=== PATIENT | female | born 1965 | race African-American/Black ===

== ENCOUNTER 2017-07-26 15:57 | Observation (INO) | payer BC ==
[2017-07-26 16:04] VITALS: BMI 34.0
--- NOTE | 2017-07-26 16:27 | PDOC ---
History of Present Illness - General Chief Complaint: Lightheaded Stated Complaint: DIZZINESS Time Seen by Provider: 07/26/17 16:14 History Source: Patient - History of Present Illness Initial Comments: 07/26/17 18:00 Patient is a 52 y.o. female with a PMH of HTN who presents today c/o an isolated episode of lightheadedness. Patient states she was in the shower today when she suddenly felt lightheaded as if she was going to faint so she got out of the shower and sat on the toilet. Patient then vomited. Patient states she thought she vomited 1-2 tablespoons, however, when she looked down at the towel she had vomited 1-2 cups. Patient states there was no blood in the vomit and the vomit looked like a recent hamburger which she just consumed. Patient denies any diaphoresis, chest pain or shortness of breath but does note an intermittent pain in her R abdomen (upper and lower quadrants) that resolved shortly post emesis. Attending (Dr. Ramirez) HPI noted that patient was with her mother later in the day when her mother noticed patient looked unwell and insisted patient come to ED for evaluation. PSH: none NKDA Social: (-) nicotine, (+) alcohol 3-4 drinks monthly, (-) marijuana/cocaine/ heroin PMD: Dr. Sweet Past History - Past Medical History Allergies/Adverse Reactions: Allergies Allergy/AdvReac Type Severity Reaction Status Date / Time No Known Allergies Allergy Verified 07/26/17 16:04 Home Medications: Ambulatory Orders Amlodipine Besylate [Norvasc -] 5 mg PO DAILY 07/26/17 Hydrochlorothiazide [Hctz -] 25 mg PO DAILY 07/26/17 HTN: Yes - Suicide/Smoking/Psychosocial Hx Smoking History: Never smoked Hx Alcohol Use: No Drug/Substance Use Hx: No Substance Use Type: None Review of Systems - Review of Systems Constitutional: No: Chills, Diaphoresis, Fever HEENTM: No: Blurred Vision, Double Vision Respiratory: No: Cough, Shortness of Breath Cardiac (ROS): Yes: Lightheadedness. No: Chest Pain, Palpitations ABD/GI: No: Constipated, Diarrhea : No: Burning, Dysuria Neurological: No: Headache, Numbness, Seizure, Weakness Psychiatric: No: Anxiety, Depression Hematologic/Lymphatic: No: Blood Clots All Other Systems: Reviewed and Negative *Physical Exam - Vital Signs Last Vital Signs Temp Pulse Resp BP Pulse Ox 98.5 F 103 H 18 138/95 100 07/26/17 16:01 07/26/17 16:01 07/26/17 16:01 07/26/17 16:01 07/26/17 16:01 - Physical Exam General Appearance: Yes: Nourished, Appropriately Dressed HEENT: positive: EOMI, NAIDA Neck: positive: Trachea midline, Supple Respiratory/Chest: positive: Lungs Clear, Normal Breath Sounds Cardiovascular: positive: Regular Rhythm, Regular Rate, S1, S2 Gastrointestinal/Abdominal: positive: Normal Bowel Sounds, Soft Extremity: positive: Normal Capillary Refill, Normal Inspection Integumentary: positive: Normal Color, Dry, Warm Neurologic: positive: state wildlife officer II-XII NML intact, Fully Oriented, Alert ED Treatment Course - LABORATORY CBC & Chemistry Diagram: 07/27/17 05:35 07/27/17 05:35 Medical Decision Making - Medical Decision Making 07/26/17 17:56 Patient is a 52 y.o. female with a PMH of HTN who present c/o of vomiting, possible syncope and developed chest pain (pressure) while in ED. Initial DDx included ACS vs. Dehydration vs. Muskoskeletal pain. EKG showed HR 92 with T wave inversions in Lead III, aVF. Office of patient's PCP, Dr. Sweet, contacted, and prior EKG showed T wave inversion in Lead III, however not aVF. Patient's Troponin (+) 0.08. Patient administered oral K+ supplemention for Hypokalemia (3.2) and admitted to inpatient telemetry under Dr. Marsh. 07/27/17 14:58 *DC/Admit/Observation/Transfer Diagnosis at time of Disposition: Myocardial infarction - Discharge Dispostion Condition at time of disposition: Fair Admit: Yes
[2017-07-26 16:53] LABS: BASOPHIL 0.4 % (0-2.0); EOSINOPHIL 0.4 % (0-4.5); MCH 22.3 pg (25.7-33.7); MCHC 33.3 g/dl (32.0-36.0); MEAN CELL VOLUME 66.9 fl (80-96); NEUTROPHILS 78.5 % (42.8-82.8); PLATELET COUNT 274 K/MM3 (134-434); RDW 15.7 % (11.6-15.6); WHITE BLOOD COUNT 10.6 K/mm3 (4.0-10.0)
--- NOTE | 2017-07-26 17:53 | PDOC ---
Attending Attestation - Resident Resident Name: Qi Brooks - ED Attending Attestation I have performed the following: I have examined & evaluated the patient, The case was reviewed & discussed with the resident, I agree w/resident's findings & plan, Exceptions are as noted - HPI HPI: 07/26/17 16:28 52yo F hx HTN p/w lightheadness since this morning while in the shower. She felt like she would pass out so she went to sit on the toilet where she then had 1 episode of NBNB emesis. Pt is not sure if she had LOC but she did not fall off the toilet. Pt reports resolution of lightheadness a few mins later and so she tried to go to the post office with her mother who reports that she appeared weak and did not look well. At that point, the patient told her mother about her lightheadedness which prompted her to come to the ED. Here in the ED, the patient began to report intermittent sternal non radiating chest pressure for a few mins at a time. She can no identify any relieving or exacerbating factors. Pt was otherwise in her USOGH, denies fevers, chills, SOB, LE edema, dysuria, rashes. PMD: Dr Sweet - Physicial Exam PE: 07/26/17 17:54 GENERAL: Awake, alert, and fully oriented, in no acute distress HEAD: No signs of trauma EYES: PERRLA, EOMI, sclera anicteric, conjunctiva clear ENT: Auricles normal inspection, hearing grossly normal, nares patent, oropharynx clear without exudates. Moist mucosa NECK: Normal ROM, supple, no lymphadenopathy, JVD, or masses LUNGS: Breath sounds equal, clear to auscultation bilaterally. No wheezes, and no crackles HEART: Regular rate and rhythm, normal S1 and S2, no murmurs, rubs or gallops ABDOMEN: Soft, nontender, normoactive bowel sounds. No guarding, no rebound. No masses EXTREMITIES: Normal range of motion, no edema. No clubbing or cyanosis. No cords, erythema, or tenderness NEUROLOGICAL: Normal speech, cranial nerves intact, negative pronator drift, 5/ 5 strength in all 4 extremities, normal sensation to light touch in all 4 extremities, normal cerebellar exam, normal gait, normal reflexes and tone SKIN: Warm, Dry, normal turgor, no rashes or lesions noted. EKG, NSR, normal axis, diffuse TWI in II, III, Avf and V2-V4. No RICHI - Medical Decision Making 07/26/17 18:09 52-year-old female with a history of hypertension who presents with an episode of presyncope, vomiting and intermittent chest pain while here in the emergency department. Vitals are unremarkable. Exam is normal. EKG is concerning for new flipped T waves in multiple leads compared to previous EKG dictated over the phone by her primary care doctor to Dr. Brooks. Differential includes but is not limited to unstable angina versus ACS versus PE. -labs -cxr -asa -youth nutritional monitor 07/26/17 18:45 -dimer negative, trop positive to 0.08 concerning for ACS vs NSTEMI. Pt on youth nutritional monitor. Pt admitted to Dr. Ricks for further evaluation (covering for Dr. Sweet). Cardiology has been consulted.
[2017-07-26 17:55] LABS: PLATELET COMMENT2 NO CLOTTING DETECTED; PLATELET ESTIMATE ADEQUATE (NORMAL)
[2017-07-26 17:56] LABS: ANISOCYTOSIS 1+; MICROCYTOSIS 1+; POLYCHROMASIA 1+
[2017-07-26 18:02] LABS: ANION GAP 8 (8-16); BILIRUBIN,TOTAL 0.2 mg/dL (0.2-1.0); CALCIUM 9.9 mg/dL (8.5-10.1); CO2 31 mmol/L (21-32); CREATININE 1.1 mg/dL (0.55-1.02); GLUCOSE,RANDOM 111 mg/dL (74-106); SGOT/AST 13 U/L (15-37); SGPT/ALT 26 U/L (12-78); TOT PROT 8.3 g/dl (6.4-8.2)
[2017-07-26 18:04] LABS: ALK PHOS 108 U/L (45-117); CPK 117 IU/L (26-192); TROPONIN I 0.08 ng/ml (0.00-0.05)
[2017-07-26] MEDS ORDERED: ASPIRIN 325 MG TABLET PO ONE (18:14)
[2017-07-26] MEDS ORDERED: ASPIRIN 325 MG TABLET ONE (18:38)
[2017-07-26] MEDS ORDERED: ACETAMINOPHEN 325 MG TABLET (FP) PO ONE (18:55)
[2017-07-26] MEDS ORDERED: POTASSIUM CHLORIDE TABS 20 MEQ TABLET.ER (FP) PO ONE ×2 (18:56→19:22)
[2017-07-26] MEDS ORDERED: ACETAMINOPHEN 325 MG TABLET (FP) ONE (19:22)
--- NOTE | 2017-07-26 21:21 | HP ---
Admitting History and Physical - Primary Care Physician PCP: Alethea Ricks S - Admission Chief Complaint: dizziness, CP History of Present Illness: Patient is a 52 y.o. female with a PMH of HTN who presents today c/o an isolated episode of lightheadedness. Patient states she was in the shower today when she suddenly felt lightheaded as if she was going to faint so she got out of the shower and sat on the toilet. Patient then vomited. Patient states there was no blood in the vomit and no abdominal pain. Patient denies any diaphoresis or shortness of breath but does note an intermittent pain in her chest but she attributed it to having "heavy breasts pressing on her chest". Pt seen in ER. Her mother at bedside. Pt saw PCP dr Lacey Sweet last week and was started on HCT for HTN and meclizine for prn vertigo. History Source: Patient, Family Member, Medical Record - Past Medical History Cardiovascular: Yes: HTN - Smoking History Smoking history: Never smoked - Alcohol/Substance Use Hx Alcohol Use: No History of Substance Use: reports: None - Social History Usual Living Arrangement: Yes: With Parent ADL: Independent History of Recent Travel: No Home Medications - Allergies Allergies/Adverse Reactions: Allergies Allergy/AdvReac Type Severity Reaction Status Date / Time No Known Allergies Allergy Verified 07/26/17 16:04 - Home Medications Home Medications: Ambulatory Orders Amlodipine Besylate [Norvasc -] 5 mg PO DAILY 07/26/17 Hydrochlorothiazide [Hctz -] 25 mg PO DAILY 07/26/17 Aspirin [ASA -] 81 mg PO DAILY tab.chew 07/27/17 Potassium Chloride [K-Dur -] 20 meq PO DAILY #30 tab 07/27/17 Family Disease History - Family Disease History Family History: Unremarkable Review of Systems - Review of Systems Constitutional: denies: Chills, Fever Eyes: denies: Blurred Vision, Double Vision HENT: denies: Difficult Swallowing, Epistaxis Neck: denies: Stiffness, Tenderness Cardiovascular: reports: Chest Pain. denies: Palpitations, Shortness of Breath Respiratory: denies: Cough, SOB Gastrointestinal: denies: Abdominal Pain, Bloating, Constipation, Diarrhea Genitourinary: denies: Dysuria, Flank Pain Musculoskeletal: denies: Back Pain, Joint Pain Neurological: denies: Change in LOC, Change in Speech, Confusion, Seizure Hematology/Lymphatic: denies: Easily Bruised, Excessive Bleeding Psychiatric: denies: Altered Sleep Pattern, Anxiety, Depression Physical Examination Vital Signs: Vital Signs Temperature 98.4 F 07/26/17 20:50 Pulse Rate 100 H 07/26/17 20:50 Respiratory Rate 07/26/17 20:50 Blood Pressure 140/92 07/26/17 20:50 O2 Sat by Pulse Oximetry (%) 98 07/26/17 20:24 Constitutional: Yes: No Distress, Calm Eyes: Yes: Conjunctiva Clear HENT: Yes: Atraumatic Neck: Yes: Supple Cardiovascular: Yes: Regular Rate and Rhythm Respiratory: Yes: CTA Bilaterally Gastrointestinal: Yes: Soft. No: Distention, Tenderness Renal/: No: CVA Tenderness - Left, CVA Tenderness - Right Musculoskeletal: No: Joint Stiffness, Joint Swelling Extremities: No: Cold, Cool, Cyanosis Edema: No Integumentary: No: Rash, Venous Stasis Changes Neurological: Yes: WNL, Alert, Oriented ...Motor Strength: WNL Psychiatric: Yes: WNL, Alert, Oriented. No: Agitated, Suicidal Ideation Imaging - Results Chest X-ray: Report Reviewed Other: Report Reviewed Assessment/Plan HTN, overweight; CP sd, low K, presyncope EKG some T changes noted; troponins borderline + admit to telemetry cardiac eval echo; further w/u per cardio replete K, f/u labs d/w pt and her mother d/w pt's PCP
[2017-07-26] MEDS: HEPARIN NA (PORCINE) 5,000 UNITS/ML 1ML VIAL SQ SCH (22:26)
[2017-07-27 07:27] LABS: BASOPHIL 0.5 % (0-2.0); EOSINOPHIL 0.7 % (0-4.5); MCH 21.6 pg (25.7-33.7); MEAN CELL VOLUME 67.6 fl (80-96); MEAN PLT VOLUME 8.8 fl (7.5-11.1); NEUTROPHILS 53.2 % (42.8-82.8); PLATELET COUNT 247 K/MM3 (134-434); RDW 15.5 % (11.6-15.6); WHITE BLOOD COUNT 6.3 K/mm3 (4.0-10.0)
[2017-07-27 08:17] LABS: ANION GAP 10 (8-16); CALCIUM 9.3 mg/dL (8.5-10.1); CO2 30 mmol/L (21-32); GLUCOSE,RANDOM 88 mg/dL (74-106)
[2017-07-27 08:23] LABS: CPK 102 IU/L (26-192); CREATININE 0.9 mg/dL (0.55-1.02); TROPONIN I 0.07 ng/ml (0.00-0.05)
[2017-07-27] MEDS: HEPARIN NA (PORCINE) 5,000 UNITS/ML 1ML VIAL SQ SCH (09:21)
--- NOTE | 2017-07-27 09:26 | PN ---
Progress Note, Physician Chief Complaint: see DC summary from today - Current Medication List Current Medications: Active Medications Amlodipine Besylate (Norvasc -) 5 mg PO DAILY [facility] Last Admin: 07/27/17 09:20 Dose: 5 mg Aspirin (Asa -) 81 mg PO DAILY [facility] Last Admin: 07/27/17 09:20 Dose: 81 mg Heparin Sodium (Porcine) (Heparin -) 5,000 unit SQ BID [facility] Last Admin: 07/27/17 09:21 Dose: 5,000 unit Hydrochlorothiazide (Hctz -) 25 mg PO DAILY [facility] Last Admin: 07/27/17 09:20 Dose: 25 mg Potassium Chloride (K-Dur -) 40 meq PO ONCE ONE Stop: 07/27/17 09:26 Potassium Chloride (K-Dur -) 20 meq PO DAILY [facility] - Objective Vital Signs: Vital Signs Temperature 98.1 F 07/27/17 08:37 Pulse Rate 69 07/27/17 08:37 Respiratory Rate 20 07/27/17 08:37 Blood Pressure 138/69 07/27/17 08:37 O2 Sat by Pulse Oximetry (%) 99 07/26/17 20:50 Labs: CBC, BMP 07/27/17 05:35 07/27/17 05:35 Assessment/Plan see DC from today
[2017-07-27] MEDS ORDERED: amLODIPine BESYLATE 5 MG TABLET (FP) PO SCH (10:00)
[2017-07-27] MEDS ORDERED: ASPIRIN 81 MG CHEWABLE TABLETS PO SCH (10:00)
[2017-07-27] MEDS ORDERED: POTASSIUM CHLORIDE TABS 20 MEQ TABLET.ER (FP) PO ONE (10:00)
[2017-07-27] MEDS ORDERED: HYDROCHLOROTHIAZIDE 25 MG TABLET (FP) PO SCH (10:00)
--- NOTE | 2017-07-27 10:56 | CON.CARD ---
Cardiology Consult (text) - Consultation Consultation Note: cc: dizziness hpi: 52 f hx htn here with dizziness. Pt had been feeling well until yesterday. She was taking a shower and felt lightheaded so she got out and sat on toilet and then felt nausea and vomited. Does not recall and LOC. After vomiting felt better but later on decided to come to ER for eval. No cp, sob, palps, pnd, orthopnea, le edema. No hx of such episodes. Feeling well this AM. pmh: per hpi psh: nc social: no tob fam: no premature cad, scd ros: per hpi; no fever, diarrhea, cough, nasal congestion, iverson, vision changes, hematuria, gib, dysuria meds: Ambulatory Orders Amlodipine Besylate [Norvasc -] 5 mg PO DAILY 07/26/17 Hydrochlorothiazide [Hctz -] 25 mg PO DAILY 07/26/17 pe: Vital Signs Period Temp Pulse Resp BP Sys/Bowles Pulse Ox Last 24 Hr 98.1 F-98.8 F 69-103 18-20 133-143/69-95 98-100 nad no jvd rrr s1s2 no mrg cta bl nl eff aaox3 no le e/c/c abd nt nd pos bs no jaundice diaphoresis pos dp pt no carotid bruits Laboratory Last Values WBC 6.3 K/mm3 (4.0-10.0) D 07/27/17 05:35 RBC 5.24 M/mm3 (3.60-5.2) H 07/27/17 05:35 Hgb 11.3 GM/dL (10.7-15.3) 07/27/17 05:35 Hct 35.5 % (32.4-45.2) 07/27/17 05:35 MCV 67.6 fl (80-96) L 07/27/17 05:35 MCH 21.6 pg (25.7-33.7) L 07/27/17 05:35 MCHC 32.0 g/dl (32.0-36.0) 07/27/17 05:35 RDW 15.5 % (11.6-15.6) 07/27/17 05:35 Plt Count 247 K/MM3 (134-434) 07/27/17 05:35 MPV 8.8 fl (7.5-11.1) 07/27/17 05:35 Neutrophils % 53.2 % (42.8-82.8) D 07/27/17 05:35 Lymphocytes % 39.6 % (8-40) D 07/27/17 05:35 Monocytes % 6.0 % (3.8-10.2) 07/27/17 05:35 Eosinophils % 0.7 % (0-4.5) 07/27/17 05:35 Basophils % 0.5 % (0-2.0) 07/27/17 05:35 Platelet Estimate Adequate (NORMAL) 07/26/17 16:40 Platelet Comment No clumping noted 07/26/17 16:40 Platelet Comment No clotting detected 07/26/17 16:40 Polychromasia 1+ 07/26/17 16:40 Anisocytosis 1+ 07/26/17 16:40 Microcytosis 1+ 07/26/17 16:40 D-Dimer < 200 ng/ml (<200-235) 07/26/17 18:30 Sodium 139 mmol/L (136-145) 07/27/17 05:35 Potassium 3.3 mmol/L (3.5-5.1) L 07/27/17 05:35 Chloride 99 mmol/L (98-107) 07/27/17 05:35 Carbon Dioxide 30 mmol/L (21-32) 07/27/17 05:35 Anion Gap 10 (8-16) 07/27/17 05:35 BUN 18 mg/dL (7-18) 07/27/17 05:35 Creatinine 0.9 mg/dL (0.55-1.02) 07/27/17 05:35 Creat Clearance w eGFR 52.58 (>60) 07/26/17 17:30 Random Glucose 88 mg/dL (74-106) D 07/27/17 05:35 Calcium 9.3 mg/dL (8.5-10.1) 07/27/17 05:35 Magnesium 2.2 mg/dL (1.8-2.4) 07/26/17 17:30 Total Bilirubin 0.2 mg/dL (0.2-1.0) 07/26/17 17:30 AST 13 U/L (15-37) L 07/26/17 17:30 ALT 26 U/L (12-78) 07/26/17 17:30 Alkaline Phosphatase 108 U/L (45-117) 07/26/17 17:30 Creatine Kinase 102 IU/L (26-192) 07/27/17 05:35 Troponin I 0.07 ng/ml (0.00-0.05) H 07/27/17 05:35 Total Protein 8.3 g/dl (6.4-8.2) H 07/26/17 17:30 Albumin 4.0 g/dl (3.4-5.0) 07/26/17 17:30 ecg 07/26/17: sr, nl intervals, lvh, nonspec tw changes, no st changes cxr: clear lungs tele: sr a/p: 52 f hx htn here with dizziness. presyncope: -seems vasovagal based on description, feeling better now -no signs acs, chf, arrhythmia -tele benign -can check echo today -if echo benign then pt can f/u as outpt to consider possible event monitor htn: -cont home meds
[2017-07-27 12:51] LABS: FERRITIN 23.052 ng/ml (6.9-282.5)
[2017-07-27 15:09] VITALS: BP 125/77; PULSE 82; TEMP 97.3
--- NOTE | 2017-07-27 17:45 | PN ---
Progress Note (short form) - Note Progress Note: Echo report reviewed --> no significant abnormalities. Discussed with Dr. Mayfield and pmd. --> patient stable for d/c from CV perspective. Will need outpatient cardiology follow up.
--- NOTE | 2017-07-27 18:21 | DS ---
Physical Examination Vital Signs: Vital Signs Temperature 97.3 F L 07/27/17 15:08 Pulse Rate 82 07/27/17 15:08 Respiratory Rate 20 07/27/17 15:08 Blood Pressure 125/77 07/27/17 15:08 O2 Sat by Pulse Oximetry (%) 98 07/27/17 08:00 Findings/Remarks: in bed no new c/o no CP/dizziness Constitutional: Yes: No Distress, Calm Eyes: Yes: Conjunctiva Clear HENT: Yes: Atraumatic Neck: Yes: Supple Cardiovascular: Yes: Regular Rate and Rhythm Respiratory: Yes: CTA Bilaterally Gastrointestinal: Yes: Soft. No: Distention, Hyperactive Bowel Sounds, Tenderness Musculoskeletal: No: Joint Stiffness, Joint Swelling Extremities: No: Cold, Cool, Cyanosis Edema: No Integumentary: No: Rash, Venous Stasis Changes Neurological: Yes: WNL, Alert, Oriented ...Motor Strength: WNL Psychiatric: Yes: WNL, Alert, Oriented. No: Agitated, Suicidal Ideation Labs: CBC, BMP 07/27/17 05:35 07/27/17 05:35 Discharge Summary Reason For Visit: MYOCARDIAL INFARCTION Current Active Problems Myocardial infarction (Acute) Procedures: Principal: admitted with CP/ presyncope, borderline troponins and some EKG changes Other Procedures: echo WNL d/w cardio dr Mayfield and dr Brady who cleared pt to go home and advised close f/u in office; K po ordered from her pharmacy; Hospital Course: pt to DC home today and f/u with PCP and cardio within 1 week for labs and further w/u; d/w pt and d/w PCP, d/w staff Condition: Fair - Instructions Diet, Activity, Other Instructions: * f/u PCP and cardiology and labs CBC CMP in 1 week * Return to ER if worse or recurrent symptoms occur * Take meds as advised Referrals: Umang Mayfield MD [Staff Physician] - Carmen Sweet MD [Primary Care Provider] - Disposition: HOME - Home Medications Comprehensive Discharge Medication List: Ambulatory Orders Amlodipine Besylate [Norvasc -] 5 mg PO DAILY 07/26/17 Hydrochlorothiazide [Hctz -] 25 mg PO DAILY 07/26/17 Aspirin [ASA -] 81 mg PO DAILY tab.chew 07/27/17 Potassium Chloride [K-Dur -] 20 meq PO DAILY #30 tab 07/27/17
--- NOTE | 2017-07-28 09:48 | EKG ---
Test Reason : Blood Pressure : / mmHG Vent. Rate : 092 BPM Atrial Rate : 092 BPM P-R Int : 150 ms QRS Dur : 088 ms QT Int : 362 ms P-R-T Axes : 024 001 -17 degrees QTc Int : 447 ms NORMAL SINUS RHYTHM MODERATE VOLTAGE CRITERIA FOR LVH, MAY BE NORMAL VARIANT NONSPECIFIC T WAVE ABNORMALITY ABNORMAL ECG NO PREVIOUS ECGS AVAILABLE Confirmed by MD AUGUST, EDWIGE ([id number]) on 07/28/2017 9:48:21 AM Referred By: Confirmed By:EDWIGE KOCH MD
[2017-07-28] MEDS ORDERED: POTASSIUM CHLORIDE TABS 20 MEQ TABLET.ER (FP) PO SCH (10:00)
== END 2017-07-27 20:59 | disposition home or self-care (01) ==
LOC: JER 15:57 → UNDOADMIN 18:29 → JERBED 18:29 → J4W 20:40 → INTOOBSV 21:18 → UNDOADMOB 21:18 → J4W 21:18
PROVIDERS: ADMIT Internal Medicine; ATTEND Internal Medicine
PROC: 3E013GC Introduction of Other Therapeutic Substance into Subcutaneous Tissue, Percutaneous Approach (ICD-10-PCS; principal; 2017-07-27)
DX: I21.3 ST elevation (STEMI) myocardial infarction of unspecified site (principal); R55 Syncope and collapse; R42 Dizziness and giddiness; I10 Essential (primary) hypertension; E66.3 Overweight; Z68.34 Body mass index [BMI] 34.0-34.9, adult
CPT/HCPCS: 36415; 71020-TC; 80048; 80053; 82728; 83540; 83735; 84484; 85025; 85379; 93005; 93010; 93306-TC; 99285-25; G0378; J1644

== ENCOUNTER 2020-07-05 12:27 | Emergency (ER) | payer BC, OTHER ==
[2020-07-05 12:46] VITALS: BP 160/92; PULSE 79; TEMP 98.2; BMI 35.9
--- NOTE | 2020-07-05 12:54 | PDOC ---
Rapid Medical Evaluation Chief Complaint: Injury Time Seen by Provider: 07/05/20 12:46 Medical Evaluation: Allergies Allergy/AdvReac Type Severity Reaction Status Date / Time No Known Allergies Allergy Verified 07/05/20 12:44 Vital Signs Temp Pulse Resp BP Pulse Ox 98.2 F 79 18 160/92 100 07/05/20 12:44 07/05/20 12:44 07/05/20 12:44 07/05/20 12:44 07/05/20 12:44 07/05/20 12:47 CC: fell on wet floor landing on left knee and twisted rt leg. No complaints otherwise. works for [employer] Exam: no physical limitations Patient ordered for : for eval from FT provider Discharge Disposition - Diagnosis Fall - Referrals - Patient Instructions - Post Discharge Activity
--- NOTE | 2020-07-05 13:03 | PDOC ---
History of Present Illness - General Chief Complaint: Injury Stated Complaint: FALL / PAIN Time Seen by Provider: 07/05/20 12:46 History Source: Patient Exam Limitations: Clinical Condition - History of Present Illness Initial Comments: 07/05/20 13:05 Patient with no significant past medical history present for evaluation of left knee pain status post slip and fall at work which report pain is improved now. Patient reports she slipped on a wet floor and overextended right leg and hit anterior patella of left knee on the floor over an hour ago. Patient report started having pain initially after fall but pain is improved now. Patient has not taken anything for pain. Patient reports she came in because she was instructed by her boss to come in for evaluation. Denies any other symptoms Occurred: reports: just prior to arrival Severity: reports: mild Pain Location: reports: lower extremity (right knee pain) Method of Injury: Yes: fall Loss of Consciousness: no loss of consciousness Associated Symptoms (Fall): denies symptoms Past History - Medical History Allergies/Adverse Reactions: Allergies Allergy/AdvReac Type Severity Reaction Status Date / Time No Known Allergies Allergy Verified 07/05/20 12:44 Home Medications: Ambulatory Orders Amlodipine Besylate [Norvasc -] 5 mg PO DAILY 07/26/17 Hydrochlorothiazide [Hctz -] 25 mg PO DAILY 07/26/17 Aspirin [ASA -] 81 mg PO DAILY tab.chew 07/27/17 Potassium Chloride [K-Dur -] 20 meq PO DAILY #30 tab 07/27/17 COPD: No HTN: Yes - Reproductive History Is Patient Now?: No - Immunization History Immunization Up to Date: Yes - Psycho-Social/Smoking History Smoking History: Never smoked Have you smoked in the past 12 months: No - Substance Abuse Hx (Audit-C & DAST Scrn) How often the patient has a drink containing alcohol: Never Score: In Men: 4 or > Positive; In Women: 3 or > Positive: 0 Screen Result (Pos requires Nsg. Audit-10AR): Negative In the last yr the pt used illegal drug/Rx for NonMed reason: No Score: Yes response is considered Positive: 0 Screen Result (Positive result requires Nsg. DAST-10): Negative Review of Systems - Review of Systems Able to Perform ROS?: Yes Is the patient limited Amharic proficient: No Constitutional: No: Chills, Fever, Malaise HEENTM: No: Symptoms Reported, See HPI, Eye Pain, Blurred Vision, Tearing, Recent change in vision, Double Vision, Cataracts, Ear Pain, Ocular Prothesis, Ear Discharge, Nose Pain, Nose Congestion, Tinnitus, Nose Bleeding, Hearing Loss, Throat Pain, Throat Swelling, Mouth Pain, Dental Problems, Difficulty Swallowing, Mouth Swelling, Other Respiratory: No: Symptoms reported, See HPI, Cough, Orthopnea, Shortness of Breath, SOB with Exertion, SOB at Rest, Stridor, Wheezing, Productive cough, Hemoptysis, Other Cardiac (ROS): No: Symptoms Reported, See HPI, Chest Pain, Edema, Irregular Heart Rate, Lightheadedness, Palpitations, Syncope, Chest Tightness, Other ABD/GI: No: Symptoms Reported Musculoskeletal: Yes: Symptoms Reported, See HPI, Joint Pain (left knee pain resolved). No: Joint Swelling, Joint Stiffness Integumentary: No: Symptoms Reported Neurological: No: Symptoms reported, Paresthesia, Tremors, Weakness All Other Systems: Reviewed and Negative *Physical Exam - Vital Signs Last Vital Signs Temp Pulse Resp BP Pulse Ox 98.2 F 79 18 160/92 100 07/05/20 12:44 07/05/20 12:44 07/05/20 12:44 07/05/20 12:44 07/05/20 12:44 - Physical Exam 07/05/20 13:09 GENERAL: Well developed, well nourished. Awake and alert. No acute distress. PULMONARY: No evidence of respiratory distress. MUSCULOSKELETAL : no tenderness elicited to bilateral lower extremity. No ecchymosis or bruising to bilateral knees. Negative anterior and posterior drawer test of bilateral knees. EXTREMITIES: No cyanosis. No clubbing. No edema. No calf tenderness. SKIN: Warm and dry. Normal capillary refill. No bruising or ecchymosis to bilateral lower extremity NEUROLOGICAL: Alert, awake, appropriate. No motor deficits in the lower extremities. Gait is normal without ataxia. PSYCHIATRIC: Cooperative. Good eye contact. Appropriate mood and affect. General Appearance: Yes: Nourished, Appropriately Dressed. No: Apparent Distress Medical Decision Making - Medical Decision Making 07/05/20 13:06 Patient with no significant past medical history present for evaluation of left knee pain status post slip and fall at work which report pain is improved now. Patient reports she slipped on a wet floor and overextended right leg and hit anterior patella of left knee on the floor over an hour ago. Patient report started having pain initially after fall but pain is improved now. Patient has not taken anything for pain. Patient reports she came in because she was instructed by her boss to come in for evaluation. Denies any other symptoms Clinical exam unremarkable with no tenderness elicited to bilateral lower extremity. No ecchymosis or bruising to bilateral knees. Negative anterior and posterior drawer test of bilateral knees. Patient in no acute distress. Patient symptoms likely knee contusion with strain. Patient stable for discharge to do cold compresses as needed and switch to hot compresses as needed for knee pain. Patient advised to take Motrin as needed for pain and follow-up with orthopedics as needed. Patient left department ambulating with normal gait in no distress Discharge - Discharge Information Problems reviewed: Yes Clinical Impression/Diagnosis: Contusion of right knee, initial encounter Fall Qualifiers: Encounter type: initial encounter Qualified Code(s): W19.XXXA - Unspecified fall, initial encounter Condition: Stable Disposition: HOME - Admission No - Follow up/Referral Referrals: Mehdi Lim DO [Staff Physician] - - Patient Discharge Instructions Patient Printed Discharge Instructions: DI for Knee Sprain Additional Instructions: Your knee pain was likely from knee sprain which is improved now. Apply cold compresses as needed for pain and switch to hot compresses tomorrow as needed if persistent swelling. Take Motrin as needed for pain. Follow-up with orthopedics as needed - Post Discharge Activity
== END 2020-07-05 13:13 | disposition home or self-care (01) ==
LOC: JERFT 12:27
DX: S80.01XA Contusion of right knee, initial encounter (principal)
CPT/HCPCS: 99282-25